=== PATIENT | male | born 1995 | race Caucasian/White ===

== ENCOUNTER 2018-02-26 21:39 | Inpatient (IN) | payer MEDICAID ==
[2018-02-26] MEDS ORDERED: KETOROLAC TROMETHAMINE INJ/PF 30 MG/1 ML SDV IV ONE (21:57)
--- NOTE | 2018-02-26 22:07 | ER Document Report ---
ED GI/ - General Mode of Arrival: Ambulatory Information source: Patient TRAVEL OUTSIDE OF THE [place] IN LAST 30 DAYS: No <LEVON NORWOOD - Last Filed: 02/26/18 21:59> <JORDY SAMANO - Last Filed: 02/27/18 00:15> - General Chief Complaint: Abdominal Pain Stated Complaint: ABDOMINAL PAIN Time Seen by Provider: 02/26/18 21:51 Notes: 22 year old male that presents to the emergency department today with complaints of an upper abdominal squeezing pain. Patient states he ate a beef and cheese slider about 1 hour prior to this pain. Patient notices increased pain when breathing in. (LEVON NORWOOD) - Related Data Allergies/Adverse Reactions: No Known Allergies Allergy (Verified 06/05/14 12:20) Past Medical History - General Information source: Patient - Social History Smoking Status: Never Smoker Cigarette use (# per day): No Frequency of alcohol use: None Drug Abuse: None Lives with: Family Family History: Reviewed & Not Pertinent - Immunizations Immunizations up to date: Yes Hx Diphtheria, Pertussis, Tetanus Vaccination: Yes <LEVON NORWOOD - Last Filed: 02/26/18 21:59> Review of Systems - Review of Systems Constitutional: No symptoms reported EENT: No symptoms reported Cardiovascular: No symptoms reported Respiratory: No symptoms reported Gastrointestinal: See HPI, Abdominal pain Genitourinary: No symptoms reported Male Genitourinary: No symptoms reported Musculoskeletal: No symptoms reported Skin: No symptoms reported Hematologic/Lymphatic: No symptoms reported Neurological/Psychological: No symptoms reported -: Yes All other systems reviewed and negative <LEVON NORWOOD - Last Filed: 02/26/18 21:59> Physical Exam - Vital signs Interpretation: Normal - General General appearance: Appears well, Alert - HEENT Head: Normocephalic, Atraumatic Eyes: Normal Pupils: PERRL - Respiratory Respiratory status: No respiratory distress Chest status: Nontender Breath sounds: Normal Chest palpation: Normal - Cardiovascular Rhythm: Regular Heart sounds: Normal auscultation Murmur: No - Abdominal Distension: No distension Bowel sounds: Normal Tenderness: Tender - RUQ/Epigastric ttp Organomegaly: No organomegaly - Back Back: Normal, Nontender - Extremities General upper extremity: Normal inspection, Nontender. No: Edema General lower extremity: Normal inspection, Nontender. No: Edema - Neurological Neuro grossly intact: Yes Cognition: Normal Orientation: AAOx4 [place] Coma Scale Eye Opening: Spontaneous [place] Coma Scale Verbal: Oriented [place] Coma Scale Motor: Obeys Commands [place] Coma Scale Total: 15 Speech: Normal - Psychological Associated symptoms: Normal affect, Normal mood - Skin Skin Temperature: Warm Skin Moisture: Dry Skin Color: Normal <LEVON NORWOOD - Last Filed: 02/26/18 21:59> - Vital signs Vitals: Resp Pulse Ox 11 L 100 02/26/18 21:56 02/26/18 21:56 Course <LEVON NORWOOD - Last Filed: 02/26/18 21:59> - Laboratory Result Diagrams: 02/26/18 22:05 02/26/18 22:05 - Diagnostic Test Radiology reviewed: Reports reviewed - Ultrasound shows gallstones - EKG Interpretation by Co EKG shows normal: Sinus rhythm, Crosby, Intervals, QRS Complexes, ST-T Waves Rate: Normal - 82 Rhythm: NSR - Consults Dr. Jimenez Time consulted: 23:30 Consulted provider: will see as inpatient <JORDY SAMANO - Last Filed: 02/27/18 00:15> - Re-evaluation Re-evalutation: 02/26/18 23:32 Gallbladder ultrasound shows gallstones. There is no sign of cholecystitis. Lipase is 39,820 with only slightly elevated AST and ALT and total bili. 02/26/18 23:42 The patient states his pain is better at this time, but he remains quite nauseous. He will be given a 10 mg dose of Reglan to see if that helps control his nausea. (JORDY SAMANO) - Vital Signs Vital signs: Temp Pulse Resp BP Pulse Ox 97.4 F 91 17 150/74 H 92 02/26/18 22:20 02/26/18 22:20 02/26/18 23:01 02/26/18 23:01 02/26/18 23:01 - Laboratory Laboratory results interpreted by me: 02/26/18 02/26/18 22:05 22:05 WBC 14.8 H RBC 6.17 H Hgb 17.3 H MCV 79 L Absolute Neutrophils 9.9 H Glucose 111 H Direct Bilirubin 0.5 H AST 101 H ALT 102 H Lipase 85237.2 H Discharge <LEVON NORWOOD - Last Filed: 02/26/18 21:59> - Discharge Admitting Provider: Surgicalist Unit Admitted: Surgical Floor <JORDY SAMANO - Last Filed: 02/27/18 00:15> - Discharge Clinical Impression: Acute gallstone pancreatitis Condition: Stable Disposition: ADMITTED INPATIENT Scribe Attestation: 02/26/18 22:32 I personally performed the services described in the documentation, reviewed and edited the documentation which was dictated to the scribe in my presence, and it accurately records my words and actions. (JORDY SAMANO) Scribe Documentation - Scribe Written by Pastoribe:: Hernesto Grier, 02/26/2018 [id number] acting as scribe for :: Bonnie <LEVON NORWOOD - Last Filed: 02/26/18 21:59>
[2018-02-26 22:15] LABS: ABSOLUTE BASOPHILS # (AUTO) 0.1 10^3/uL (0.0-0.2); ABSOLUTE EOSINOPHILS # (AUTO) 0.2 10^3/uL (0.0-0.6); ABSOLUTE LYMPHOCYTES (AUTO) 3.5 10^3/uL (0.5-4.7); ABSOLUTE MONOCYTES (AUTO) 1.1 10^3/uL (0.1-1.4); ABSOLUTE NEUT (AUTO) 9.9 10^3/uL (1.7-8.2); BASOPHILS % (AUTO) 0.4 % (0-2); EOSINOPHILS % (AUTO) 1.5 % (0-6); HEMATOCRIT 48.4 % (37.9-51.0); HEMOGLOBIN 17.3 g/dL (13.5-17.0); LYMPHOCYTES % (AUTO) 23.7 % (13-45); MEAN CORPUSCULAR HGB CONC 35.7 g/dL (32.0-36.0); MEAN CORPUSCULAR VOLUME 79 fl (80-97); MONOCYTES % (AUTO) 7.2 % (3-13); PLATELET COUNT 395 10^3/uL (150-450); RED BLOOD COUNT 6.17 10^6/uL (4.35-5.55); RED CELL DISTRIBUTION WIDTH 13.8 % (11.5-14.0); SEGMENTED NEUTROPHILS % (AUTO) 67.2 % (42-78); TOTAL CELLS COUNTED % (AUTO) 100 %; WHITE BLOOD COUNT 14.8 10^3/uL (4.0-10.5)
[2018-02-26 22:33] LABS: ALANINE AMINOTRANSFERASE 102 U/L (21-72); ALBUMIN 4.2 g/dL (3.5-5.0); ALKALINE PHOSPHATASE 83 U/L (38-126); ANION GAP 12 (5-19); ASPARTATE AMINO TRANSFERASE 101 U/L (17-59); BILIRUBIN,DIRECT 0.5 mg/dL (0.0-0.4); BILIRUBIN,TOTAL 1.3 mg/dL (0.2-1.3); BLOOD UREA NITROGEN 12 mg/dL (7-20); CALCIUM 9.7 mg/dL (8.4-10.2); CARBON DIOXIDE 26 mmol/L (22-30); CHLORIDE 104 mmol/L (98-107); GLUCOSE 111 mg/dL (75-110); POTASSIUM 4.3 mmol/L (3.6-5.0); SODIUM 141.5 mmol/L (137-145); TOTAL PROTEIN 7.4 g/dL (6.3-8.2)
[2018-02-26] MEDS ORDERED: MORPHINE SULFATE 10 MG/ML INJ IV ONE (22:40)
[2018-02-26] MEDS ORDERED: ONDANSETRON HCL INJ/PF 4 MG/2 ML SDV IV ONE (22:40)
[2018-02-26 23:21] LABS: LIPASE 39820.2 U/L (23-300)
--- NOTE | 2018-02-26 23:24 | RADIOLOGY REPORT (SQ) ---
US ABDOMEN LIMITED HISTORY: RUQ abd pain COMPARISON: None. TECHNIQUE: Grayscale and color Doppler imaging of the right upper quadrant was performed. FINDINGS: Study is limited due to motion artifact and body habitus. The liver measures 19.3 cm. Increased echogenicity of the hepatic parenchyma with decreased through transmission and poor visualization of the portal triads, suggesting hepatic steatosis. Shadowing gallstones are present. No pericholecystic fluid or gallbladder wall thickening. Common bile duct measures 2 mm. No intrahepatic biliary ductal dilatation. The pancreas is not visualized due to overlying bowel gas. Right kidney measures 11.4 cm in length, without hydronephrosis. Visualized portions of the IVC and aorta are patent. IMPRESSION: Limited study due to motion artifact and body habitus. Suggestion of gallstones. No evidence of cholecystitis.
[2018-02-26] MEDS ORDERED: AMPICILLIN SOD/SULBACTAM 3 GM VIAL IV SCH (23:30)
[2018-02-26] MEDS ORDERED: RINGERS SOLUTION,LACTATED 1,000 ML IV PRN (23:33)
[2018-02-26] MEDS ORDERED: METOCLOPRAMIDE HCL INJ/PF 10 MG/2 ML SDV IV ONE (23:41)
--- NOTE | 2018-02-27 00:21 | PDOC H&P ---
History of Present Illness Admission Date/PCP: 02/26/18 23:53 Patient complains of: Abdominal pain nausea History of Present Illness: TRELL HUTCHINSON is a 22 year old male Who presents to the emergency department via ground rescue complaining of acute onset postprandial abdominal pain squeezing within the chest, nausea and anorexia. He broke out in a sweat. He was seen in the emergency department where he is found to have right upper quadrant tenderness, leukocytosis, and a lipase level of 39,000. Gallbladder ultrasonography revealed cholelithiasis. Surgery was consulted and patient was advised admission for definitive management of gallstone pancreatitis. Past Medical History Past Medical History: Morbid obesity Medical History: None Past Surgical History Past Surgical History: Reports: None Social History Lives with: Family Smoking Status: Never Smoker Hx Recreational Drug Use: No Hx Prescription Drug Abuse: No Family History Family History: Reviewed & Not Pertinent Parental Family History Reviewed: Yes Children Family History Reviewed: Yes Sibling(s) Family History Reviewed.: Yes Medication/Allergy Home Medications: Hydrocodone/Acetaminophen [Vicodin 5-300 mg Tablet] 1 - 2 tab PO Q6HP PRN #15 tab 06/05/14 Cephalexin Monohydrate [Keflex 500 mg Capsule] 500 mg PO BID #20 capsule Allergies/Adverse Reactions: No Known Allergies Allergy (Verified 06/05/14 12:20) Review of Systems Constitutional: PRESENT: as per HPI Eyes: ABSENT: visual disturbances Ears: ABSENT: hearing changes Cardiovascular: ABSENT: chest pain, dyspnea on exertion, edema, orthropnea, palpitations Gastrointestinal: PRESENT: as per HPI Genitourinary: ABSENT: dysuria, hematuria Musculoskeletal: ABSENT: joint swelling Neurological: ABSENT: abnormal gait, abnormal speech, confusion, dizziness, focal weakness, syncope Psychiatric: ABSENT: anxiety, depression, homidical ideation, suicidal ideation Endocrine: ABSENT: cold intolerance, heat intolerance, polydipsia, polyuria Physical Exam Vital Signs: Temp Pulse Resp BP Pulse Ox 97.4 F 91 17 150/74 H 92 02/26/18 22:20 02/26/18 22:20 02/26/18 23:01 02/26/18 23:01 02/26/18 23:01 General appearance: PRESENT: mild distress, morbidly obese Eye exam: PRESENT: EOMI Mouth exam: PRESENT: dry mucosa Neck exam: PRESENT: full ROM Respiratory exam: PRESENT: clear to auscultation lashawn Cardiovascular exam: PRESENT: RRR Pulses: PRESENT: normal carotid pulses, normal radial pulses, normal femoral pulses GI/Abdominal exam: PRESENT: diminished bowel sounds, other - No focal tenderness at the time of this exam; patient just received narcotic pain medication Rectal exam: PRESENT: deferred Extremities exam: PRESENT: full ROM Musculoskeletal exam: PRESENT: full ROM Neurological exam: PRESENT: alert, oriented to person, oriented to place, oriented to time, oriented to situation Psychiatric exam: PRESENT: anxious, appropriate affect Results Impressions: Abdomen Ultrasound 02/26/18 21:58 IMPRESSION: Limited study due to motion artifact and body habitus. Suggestion of gallstones. No evidence of cholecystitis. Assessment & Plan - Diagnosis (1) Acute gallstone pancreatitis Is this a current diagnosis for this admission?: Yes Plan: Impression: Acute onset abdominal pain nausea anorexia right upper quadrant tenderness leukocytosis and hyperlipemia C Donna with gallbladder ultrasound confirming gallstones clinical picture is consistent with gallstone pancreatitis , uncomplicated Recommendations: 1. Admit, IV fluids, n.p.o., intravenous antibiotics. Pain medication as needed 2. Close observation, monitor I's and O's, lab values. If patient clinically improves, anticipate interval laparoscopic cholecystectomy with intraoperative cholangiography. Conversely if patient deteriorates, transfer to ICU, additional imaging such as CT scan may be indicated. 3. This was discussed with patient and his father; it is unclear how much they completely understand about the diagnosis and treatment plan. (2) Morbid obesity with BMI of 45.0-49.9, adult Is this a current diagnosis for this admission?: Yes - Time Time Spent: 50 to 70 Minutes Critical Time spent with patient: Less than 15 minutes Medications reviewed and adjusted accordingly: Yes Anticipated discharge: Home - Inpatient Certification Based on my medical assessment, after consideration of the patient's comorbidities, presenting symptoms, or acuity I expect that the services needed warrant INPATIENT care.: Yes I certify that my determination is in accordance with my understanding of Medicare's requirements for reasonable and necessary INPATIENT services [42 CFR 412.3e].: Yes Medical Necessity: Need For IV Fluids, Need for Pain Control, Need for IV Antibiotics, Need for Surgery
[2018-02-27] MEDS ORDERED: AMPICILLIN SOD/SULBACTAM 3 GM VIAL IV PRN (00:40)
[2018-02-27] MEDS ORDERED: AMPICILLIN SODIUM/SULBACTAM NA 3 GM in NORMAL SALINE 100 ML IV ONE (00:45)
[2018-02-27] MEDS: MORPHINE SULFATE 10 MG/ML INJ IV PRN ×7 (01:51→21:33)
[2018-02-27] MEDS: RINGERS SOLUTION,LACTATED 1,000 ML IV PRN ×5 (02:42→21:32)
[2018-02-27] MEDS: KETOROLAC TROMETHAMINE INJ/PF 30 MG/1 ML SDV IV PRN ×3 (04:10→17:22)
[2018-02-27 05:22] LABS: APPEARANCE,URINE CLEAR; BILIRUBIN,URINE NEGATIVE (NEGATIVE); COLOR,URINE YELLOW; GLUCOSE, URINE 50 mg/dL (NEGATIVE); KETONES,URINE TRACE mg/dL (NEGATIVE); LEUKOCYTE ESTERASE,URINE NEGATIVE (NEGATIVE); NITRITE,URINE NEGATIVE (NEGATIVE); PROTEIN,URINE 30 mg/dL (NEGATIVE); URINE SPECIFIC GRAVITY 1.012
[2018-02-27] MEDS: ONDANSETRON HCL INJ/PF 4 MG/2 ML SDV IV PRN ×2 (08:24→13:58)
--- NOTE | 2018-02-27 08:51 | EKG REPORT ---
SEVERITY:- DEFECTIVE ECG - SINUS RHYTHM BASELINE ARTIFACT.REPEAT EKG. : Confirmed by: Carolina Pink MD 27-Feb-2018 08:51:25
[2018-02-27] MEDS: AMPICILLIN SODIUM/SULBACTAM NA 3 GM in NORMAL SALINE 100 ML IV SCH ×2 (09:26→17:21)
[2018-02-27 10:35] LABS: HEMATOCRIT 52.9 % (37.9-51.0); HEMOGLOBIN 18.5 g/dL (13.5-17.0); MEAN CORPUSCULAR HEMOGLOBIN 27.8 pg (27.0-33.4); MEAN CORPUSCULAR VOLUME 79 fl (80-97); PLATELET COUNT 390 10^3/uL (150-450); RED BLOOD COUNT 6.67 10^6/uL (4.35-5.55); RED CELL DISTRIBUTION WIDTH 14.2 % (11.5-14.0); WHITE BLOOD COUNT 25.1 10^3/uL (4.0-10.5)
[2018-02-27 11:09] LABS: ABSOLUTE LYMPHOCYTES# (MANUAL) 0.8 10^3/uL (0.5-4.7); ABSOLUTE MONOCYTES # (MANUAL) 0.5 10^3/uL (0.1-1.4); ABSOLUTE NEUTROPHILS# (MANUAL) 23.8 10^3/uL (1.7-8.2); BASOPHILS % (MANUAL) 0 % (0-2); EOSINOPHILS % (MANUAL) 0 % (0-6); LYMPHOCYTES % (MANUAL) 3 % (13-45); MONOCYTES % (MANUAL) 2 % (3-13); SEGMENTED NEUTROPHILS % (MAN) 95 % (42-78); TOTAL CELLS COUNTED 100
[2018-02-27 11:10] LABS: ANISOCYTOSIS SLIGHT; PLATELET COMMENT ADEQUATE; PLATELET LARGE PRESENT; TOXIC GRANULATION 1+
--- NOTE | 2018-02-27 14:22 | PDOC PROGRESS REPORT ---
Subjective Progress Note for:: 02/27/18 Subjective:: Patient states he feels a little better. Is receiving morphine, Zofran around- the-clock. He is voiding. No vomiting. Reason For Visit: GALLSTONE PANCREATITIS Physical Exam Vital Signs: Temp Pulse Resp BP Pulse Ox 98.5 F 78 18 148/97 H 93 02/27/18 07:35 02/27/18 07:35 02/27/18 07:35 02/27/18 07:35 02/27/18 07:35 Intake & Output 02/26/18 02/27/18 02/28/18 06:59 06:59 06:59 Intake Total 2100 1100 Balance 2100 1100 Weight 164.9 kg General appearance: PRESENT: no acute distress, other - Patient appears comfortable no active distress GI/Abdominal exam: PRESENT: other - The abdomen appears benign no peritoneal signs no rigidity. He is complaining of some back pain due to being in bed Results Laboratory Results: 02/27/18 10:13 02/27/18 02/27/18 02/27/18 04:00 10:13 10:13 WBC 25.1 H RBC 6.67 H Hgb 18.5 H Hct 52.9 H MCV 79 L MCH 27.8 MCHC 35.0 RDW 14.2 H Plt Count 390 Seg Neutrophils % Not Reportable Lymphocytes % Not Reportable Monocytes % Not Reportable Eosinophils % Not Reportable Basophils % Not Reportable Absolute Neutrophils Not Reportable Absolute Lymphocytes Not Reportable Absolute Monocytes Not Reportable Absolute Eosinophils Not Reportable Absolute Basophils Not Reportable Lipase 5301.8 H Urine Color YELLOW Urine Appearance CLEAR Urine pH 6.0 Ur Specific [place] 1.012 Urine Protein 30 H Urine Glucose (UA) 50 H Urine Ketones TRACE H Urine Blood SMALL H Urine Nitrite NEGATIVE Ur Leukocyte Esterase NEGATIVE Urine WBC (Auto) 3 Urine RBC (Auto) 2 Impressions: Abdomen Ultrasound 02/26/18 21:58 IMPRESSION: Limited study due to motion artifact and body habitus. Suggestion of gallstones. No evidence of cholecystitis. Assessment & Plan - Diagnosis (1) Acute gallstone pancreatitis Is this a current diagnosis for this admission?: Yes Plan: Hospital day 1 following IV fluids, intravenous antibiotics, n.p.o., antiemetics and analgesics. Patient's laboratory profile demonstrates improvement in lipase, elevation of white blood cell count. Patient clinically improved. Recommendations: 1. Continue current therapy as the resuscitation for the pancreatitis continues ; patient appears to be euvolemic. 2. We will check labs in the morning. He may be a candidate for laparoscopic cholecystectomy. This was discussed with patient and his father. (2) Morbid obesity with BMI of 45.0-49.9, adult Is this a current diagnosis for this admission?: Yes
[2018-02-28] MEDS: MORPHINE SULFATE 10 MG/ML INJ IV PRN ×2 (00:39→03:42)
[2018-02-28] MEDS: AMPICILLIN SODIUM/SULBACTAM NA 3 GM in NORMAL SALINE 100 ML IV SCH (02:16)
[2018-02-28] MEDS: RINGERS SOLUTION,LACTATED 1,000 ML IV PRN (03:45)
[2018-02-28 05:00] LABS: HEMATOCRIT 54.1 % (37.9-51.0); HEMOGLOBIN 19.1 g/dL (13.5-17.0); MEAN CORPUSCULAR HEMOGLOBIN 28.5 pg (27.0-33.4); MEAN CORPUSCULAR HGB CONC 35.3 g/dL (32.0-36.0); MEAN CORPUSCULAR VOLUME 81 fl (80-97); PLATELET COUNT 358 10^3/uL (150-450); RED BLOOD COUNT 6.71 10^6/uL (4.35-5.55); RED CELL DISTRIBUTION WIDTH 14.6 % (11.5-14.0)
[2018-02-28 05:36] LABS: ABSOLUTE LYMPHOCYTES# (MANUAL) 0.9 10^3/uL (0.5-4.7); ABSOLUTE MONOCYTES # (MANUAL) 2.2 10^3/uL (0.1-1.4); ABSOLUTE NEUTROPHILS# (MANUAL) 28.2 10^3/uL (1.7-8.2); BASOPHILS % (MANUAL) 0 % (0-2); EOSINOPHILS % (MANUAL) 0 % (0-6); LYMPHOCYTES % (MANUAL) 3 % (13-45); MONOCYTES % (MANUAL) 7 % (3-13); SEGMENTED NEUTROPHILS % (MAN) 90 % (42-78); TOTAL CELLS COUNTED 100
[2018-02-28 05:38] LABS: PLATELET COMMENT ADEQUATE; RBC MORPHOLOGY COMMENT NORMO-CYTIC/CHROMIC
[2018-02-28 05:39] LABS: WHITE BLOOD COUNT 31.3 10^3/uL (4.0-10.5)
[2018-02-28 07:33] LABS: ALANINE AMINOTRANSFERASE 336 U/L (21-72); ALBUMIN 3.6 g/dL (3.5-5.0); ALKALINE PHOSPHATASE 82 U/L (38-126); ANION GAP 17 (5-19); ASPARTATE AMINO TRANSFERASE 271 U/L (17-59); BILIRUBIN,DIRECT 7.4 mg/dL (0.0-0.4); BILIRUBIN,TOTAL 10.1 mg/dL (0.2-1.3); BLOOD UREA NITROGEN 25 mg/dL (7-20); CALCIUM 7.5 mg/dL (8.4-10.2); CARBON DIOXIDE 16 mmol/L (22-30); CHLORIDE 110 mmol/L (98-107); GLUCOSE 168 mg/dL (75-110); SODIUM 143.3 mmol/L (137-145); TOTAL PROTEIN 6.7 g/dL (6.3-8.2)
[2018-02-28] MEDS ORDERED: NORMAL SALINE 1000 ML 1,000 ML IV PRN ×2 (08:03→08:45)
[2018-02-28] MEDS ORDERED: RINGERS SOLUTION,LACTATED 500 ML IV ONE (08:05)
--- NOTE | 2018-02-28 08:24 | RADIOLOGY REPORT (SQ) ---
EXAM DESCRIPTION: CHEST SINGLE VIEW COMPLETED DATE/TIME: 02/28/2018 8:08 am REASON FOR STUDY: tachy,will need VQ scan if normal CXR COMPARISON: 06/05/2014 EXAM PARAMETERS: NUMBER OF VIEWS: One view. TECHNIQUE: Single frontal radiographic view of the chest acquired. RADIATION DOSE: NA LIMITATIONS: None. FINDINGS: LUNGS AND PLEURA: No opacities, masses or pneumothorax. No pleural effusion. MEDIASTINUM AND HILAR STRUCTURES: No masses. Contour normal. HEART AND VASCULAR STRUCTURES: Heart normal in size. Normal vasculature. BONES: No acute findings. HARDWARE: None in the chest. OTHER: No other significant finding. IMPRESSION: NO ACUTE RADIOGRAPHIC FINDING IN THE CHEST. TECHNICAL DOCUMENTATION: JOB ID: [id number] [employer]- All Rights Reserved Reading location - IP/workstation name: [email or web address]
--- NOTE | 2018-02-28 08:28 | PDOC PROGRESS REPORT ---
Subjective Progress Note for:: 02/28/18 Subjective:: Patient with generalized malaise and weakness. Patient is easily arousable and talks coherently but his mother was concerned that he has been talking nonsensical at times. Patient denies any abdominal pain at this time. He has generalized extreme fatigue and some shortness of breath. Reason For Visit: GALLSTONE PANCREATITIS Physical Exam Vital Signs: Temp Pulse Resp BP Pulse Ox 99.3 F 136 H 20 124/78 94 02/27/18 23:57 02/27/18 23:57 02/27/18 15:27 02/27/18 23:57 02/27/18 23:57 Intake & Output 02/27/18 02/28/18 03/01/18 06:59 06:59 06:59 Intake Total 2099 414 Output Total 2019 Balance 2099 212 Weight 164.9 kg General appearance: PRESENT: cooperative - Sleepy but arousable and provides a coherent history. Appears ill. Respiratory exam: PRESENT: clear to auscultation lashawn, tachypnea Cardiovascular exam: PRESENT: tachycardia GI/Abdominal exam: PRESENT: other - Soft, difficult to tell whether he is distended but the abdomen is soft. There is diffuse abdominal tenderness that is mild, more severe in the upper abdomen with no peritoneal signs. Extremities exam: PRESENT: other - No swelling and no tenderness in the lower extremities Skin exam: PRESENT: warm Results Laboratory Results: 02/28/18 04:28 02/28/18 04:28 02/27/18 02/27/18 02/28/18 10:13 10:13 04:28 WBC 25.1 H 31.3 H* RBC 6.67 H 6.71 H Hgb 18.5 H 19.1 H Hct 52.9 H 54.1 H MCV 79 L 81 MCH 27.8 28.5 MCHC 35.0 35.3 RDW 14.2 H 14.6 H Plt Count 390 358 Seg Neutrophils % Not Reportable Not Reportable Lymphocytes % Not Reportable Not Reportable Monocytes % Not Reportable Not Reportable Eosinophils % Not Reportable Not Reportable Basophils % Not Reportable Not Reportable Absolute Neutrophils Not Reportable Not Reportable Absolute Lymphocytes Not Reportable Not Reportable Absolute Monocytes Not Reportable Not Reportable Absolute Eosinophils Not Reportable Not Reportable Absolute Basophils Not Reportable Not Reportable Sodium Potassium Chloride Carbon Dioxide Anion Gap BUN Creatinine Est GFR ( Amer) Est GFR (Non-Af Amer) Glucose Calcium Total Bilirubin AST ALT Alkaline Phosphatase Total Protein Albumin Lipase 5301.8 H 02/28/18 02/28/18 04:28 04:28 WBC RBC Hgb Hct MCV MCH MCHC RDW Plt Count Seg Neutrophils % Lymphocytes % Monocytes % Eosinophils % Basophils % Absolute Neutrophils Absolute Lymphocytes Absolute Monocytes Absolute Eosinophils Absolute Basophils Sodium 143.3 Potassium 5.0 Chloride 110 H Carbon Dioxide 16 L Anion Gap 17 BUN 25 H Creatinine 3.02 H Est GFR ( Amer) 32 L Est GFR (Non-Af Amer) 27 L Glucose 168 H Calcium 7.5 L Total Bilirubin 10.1 H AST 271 H ALT 336 H Alkaline Phosphatase 82 Total Protein 6.7 Albumin 3.6 Lipase 53114.1 H Impressions: Abdomen Ultrasound 02/26/18 21:58 IMPRESSION: Limited study due to motion artifact and body habitus. Suggestion of gallstones. No evidence of cholecystitis. Assessment & Plan - Diagnosis (1) Cholangitis concurrent with and due to calculus of gallbladder Is this a current diagnosis for this admission?: Yes Plan: Most likely cholangitis with associated pancreatitis. His marked elevation of his total bilirubin along with tachycardia, leukocytosis support this diagnosis. I do not think he has ischemic bowel based on the fact that he has minimal abdominal pain. His abdomen is soft with mild tenderness and no peritoneal signs. If he had shock liver, would expect more marked elevations of his transaminases. We will place a Dutton catheter, adjust IV fluids, broaden out antibiotic coverage. Obtain a abdominal pelvic CT scan (no IV contrast since he has emerging renal failure) (no oral contrast to avoid aspiration since he has mental status changes) and will attempt to get gastroenterology consultation for possible ERCP versus percutaneous transhepatic drainage. Agree with hospitalist plans for VQ scan and troponins to rule out pulmonary embolism or myocardial infarction but cholangitis would explained his current clinical picture. Will ask nephrology for help in managing his renal failure. But hopefully everything will turn around with broadening out his antibiotic coverage and possibly decompressing his biliary tree. (2) Sepsis Is this a current diagnosis for this admission?: Yes Plan: See above. Check blood cultures.
--- NOTE | 2018-02-28 08:43 | PDOC CONSULTATION ---
Consultation Consult Date: 02/28/18 Attending physician:: COLT MEDRANO Consult reason:: tachycardia History of Present Illness Admission Date/PCP: 02/27/18 00:11 History of Present Illness: TRELL HUTCHINSON is a 22 year old male with morbid obesity and no known other PMH , not taking maintenance medications at home who initially presented with RUQ pain and was found to have elevated lipase and gallstones. He was subsequently admitted for gallstone pancreatitis. Patient was kept NPO and was also started on IV fluids and pain management. This morning, hospitalist service was consulted due to sinus tachycardia in the 160s. Upon encounter, patient appears anxious and diaphoretic. He complains of shortness of breath which he says he has been having in the past 2 nights. He does say that he is anxious and overwhelmed with the medical issues he is dealing with at the moment. He is saturating at 97% on room air. He denies chest pain. Patient is coherent and oriented x 3 but mother did say that he has alternating episodes of confusion this morning saying incomprehensible phrases out of context from time to time like "i want to be a hero". Patient says his abdominal pain has improved. No nausea or vomiting. He says he feels very dry and thirsty. Past Surgical History Past Surgical History: Reports: None Social History Lives with: Family Smoking Status: Never Smoker Hx Recreational Drug Use: No Drugs: None Hx Prescription Drug Abuse: No Family History Family History: Reviewed & Not Pertinent Parental Family History Reviewed: Yes - no premature CAD Children Family History Reviewed: No Sibling(s) Family History Reviewed.: No Medication/Allergy Home Medications: No Home Medications 02/27/18 Allergies/Adverse Reactions: No Known Allergies Allergy (Verified 06/05/14 12:20) Review of Systems All systems: reviewed and no additional remarkable complaints except as stated - as mentioned in HPI Physical Exam Vital Signs: Temp Pulse Resp BP Pulse Ox 99.3 F 136 H 20 124/78 94 02/27/18 23:57 02/27/18 23:57 02/27/18 15:27 02/27/18 23:57 02/27/18 23:57 Intake & Output 02/27/18 02/28/18 03/01/18 06:59 06:59 06:59 Intake Total 2099 4145 Output Total 2019 Balance 2100 2126 Weight 363 lb 8.676 oz General appearance: PRESENT: mild distress, morbidly obese Head exam: PRESENT: atraumatic, normocephalic Eye exam: PRESENT: EOMI, PERRLA Mouth exam: PRESENT: moist, tongue midline Neck exam: ABSENT: carotid bruit, JVD, lymphadenopathy, thyromegaly Respiratory exam: PRESENT: clear to auscultation lashawn. ABSENT: rales, rhonchi, wheezes Cardiovascular exam: PRESENT: RRR, tachycardia. ABSENT: diastolic murmur, rubs , systolic murmur Pulses: PRESENT: normal dorsalis pedis pul GI/Abdominal exam: PRESENT: normal bowel sounds, soft. ABSENT: distended, guarding, mass, organolmegaly, rebound, tenderness Rectal exam: PRESENT: deferred Neurological exam: PRESENT: alert, awake, oriented to person, oriented to place , oriented to time Results Laboratory Results: 02/28/18 04:28 02/28/18 04:28 02/27/18 02/27/18 02/28/18 10:13 10:13 04:28 WBC 25.1 H 31.3 H* RBC 6.67 H 6.71 H Hgb 18.5 H 19.1 H Hct 52.9 H 54.1 H MCV 79 L 81 MCH 27.8 28.5 MCHC 35.0 35.3 RDW 14.2 H 14.6 H Plt Count 390 358 Seg Neutrophils % Not Reportable Not Reportable Lymphocytes % Not Reportable Not Reportable Monocytes % Not Reportable Not Reportable Eosinophils % Not Reportable Not Reportable Basophils % Not Reportable Not Reportable Absolute Neutrophils Not Reportable Not Reportable Absolute Lymphocytes Not Reportable Not Reportable Absolute Monocytes Not Reportable Not Reportable Absolute Eosinophils Not Reportable Not Reportable Absolute Basophils Not Reportable Not Reportable Sodium Potassium Chloride Carbon Dioxide Anion Gap BUN Creatinine Est GFR ( Amer) Est GFR (Non-Af Amer) Glucose Calcium Total Bilirubin AST ALT Alkaline Phosphatase Total Protein Albumin Lipase 5301.8 H 02/28/18 02/28/18 04:28 04:28 WBC RBC Hgb Hct MCV MCH MCHC RDW Plt Count Seg Neutrophils % Lymphocytes % Monocytes % Eosinophils % Basophils % Absolute Neutrophils Absolute Lymphocytes Absolute Monocytes Absolute Eosinophils Absolute Basophils Sodium 143.3 Potassium 5.0 Chloride 110 H Carbon Dioxide 16 L Anion Gap 17 BUN 25 H Creatinine 3.02 H Est GFR ( Amer) 32 L Est GFR (Non-Af Amer) 27 L Glucose 168 H Calcium 7.5 L Total Bilirubin 10.1 H AST 271 H ALT 336 H Alkaline Phosphatase 82 Total Protein 6.7 Albumin 3.6 Lipase 23994.1 H Impressions: Abdomen Ultrasound 02/26/18 21:58 IMPRESSION: Limited study due to motion artifact and body habitus. Suggestion of gallstones. No evidence of cholecystitis. Assessment & Plan - Diagnosis (1) Tachycardia Is this a current diagnosis for this admission?: Yes Plan: Patient's heart rate has been running in the 140-160s in sinus rhythm. Reviewed EKGs, one initial EKG shows a possible S1Q3T3 pattern. He is saturating well at 97% on room air. He has worsening renal functions and will pursue a V/Q scan instead to assess for PE. Will also check a troponin. Patient also appears very dehydrated consistent with increasing H&H at 17.3 -> 18.5 -> and today 19.1. Recommend more aggressive fluid resuscitation especially with his pancreatitis. Will give a fluid bolus and see if his heart rate improves but will also evaluate for PE as well. His increasing WBC, significant increase of the bilirubin and liver enzymes along with episodic confusion is also concerning acute beginning cholangitis. Recommend expanding antibiotic coverage. Surgery has order a CT scan of the abdomen and pelvis. (2) Acute renal failure Is this a current diagnosis for this admission?: Yes Plan: Acute rise in creatinine is possible from sepsis vs pre renal from dehydration. Will check a FeNa. Continue IV fluids and antibiotics. (3) Sepsis Is this a current diagnosis for this admission?: Yes Plan: Secondary to acute cholangitis. Antibiotics as recommended. Will check lactic acid. - Time Time Spent: 50 to 70 Minutes
--- NOTE | 2018-02-28 09:18 | RADIOLOGY REPORT (SQ) ---
EXAM DESCRIPTION: NM LUNG VENT/PERF SCAN COMPLETED DATE/TIME: 02/28/2018 9:08 am REASON FOR STUDY: SOB, TACHYCARDIC COMPARISON: Chest x-ray dated 02/28/2018. RADIONUCLIDE AND DOSE: 5.43 millicuries TC-99m MAA Intravenous 31.3 millicuries TC-99m DTPA Inhaled aerosol TECHNIQUE: Anterior and posterior views of the lungs acquired post ventilation of DTPA aerosol. Ant erior and posterior matching views of the lungs acquired following injection of MAA. LIMITATIONS: The study is limited to anterior and posterior images only due to patient tolerance. FINDINGS: VENTILATION: Symmetric and homogeneous distribution of DTPA aerosol during ventilatory pha se. No significant areas of photopenia. PERFUSION: Perfusion images with normal homogenous activity and no wedge-shaped or segmental defects. No ventilation-perfusion mismatches. OTHER: No other significant finding. IMPRESSION: LIMITED STUDY. NO PERFUSION DEFECTS. LOW PROBABILITY OF PULMONARY EMBOLISM. TECHNICAL DOCUMENTATION: JOB ID: [id number] [employer]- All Rights Reserved Reading location - IP/workstation name: [email or web address]
[2018-02-28] MEDS ORDERED: ERTAPENEM SODIUM 1 GM in NORMAL SALINE 50 ML IV SCH (10:00)
--- NOTE | 2018-02-28 10:08 | RADIOLOGY REPORT (SQ) ---
EXAM DESCRIPTION: CT ABD/PELVIS NO ORAL OR IV COMPLETED DATE/TIME: 02/28/2018 9:14 am REASON FOR STUDY: PANCREATITIS COMPARISON: None. TECHNIQUE: CT scan of the abdomen and pelvis performed without intravenous or oral contrast. Images reviewed with lung, soft tissue, and bone windows. Reconstructed coronal and sagittal MPR images revi ewed. All images stored on PACS. All CT scanners at this facility use dose modulation, iterative reconstruction, and/or weight based d osing when appropriate to reduce radiation dose to as low as reasonably achievable (ALARA). [facility]: Dose Right [facility]: CareDose [facility]: Dose Right [facility]: Teradose 4D [facility]: Smart Cordia RADIATION DOSE: CT Rad equipment meets quality standard of care and radiation dose reduction techniq ues were employed. CTDIvol: 30.8 mGy. DLP: 2047 mGy-cm. LIMITATIONS: None. FINDINGS: LOWER CHEST: Small bilateral pleural effusions, slightly larger on the left. Prior granu lomatous disease. NON-CONTRASTED LIVER, SPLEEN, ADRENALS: Mild free fluid in the perihepatic and perisplenic spaces. Evaluation limited by lack of IV contrast. No identified significant masses. PANCREAS: The pancreas is diffusely enlarged. There is haziness and linear soft tissue stranding in the surrounding peripancreatic fat which extends into the bilateral perinephric spaces suggesting in flammatory and or edematous changes. Considerations for these findings include acute pancreatitis. GALLBLADDER: Very small gallstones are suggested. No diffuse gallbladder wall thickening by CT exam ination. RIGHT KIDNEY AND URETER: No suspicious masses. Assessment limited by lack of IV contrast. No signif icant calcifications. No hydronephrosis or hydroureter. LEFT KIDNEY AND URETER: No suspicious masses. Assessment limited by lack of IV contrast. No signifi cant calcifications. No hydronephrosis or hydroureter. AORTA AND RETROPERITONEUM: No aneurysm. No retroperitoneal masses or adenopathy. BOWEL AND PERITONEAL CAVITY: No evidence of marked dilatation of the bowel. Mild amount of free flui d in the colonic gutters bilaterally. Mild to moderate inflammatory changes involving the abdominal and mesenteric fat which extends into and involves the fat within the pelvic cavity, suggesting infla mmatory and or edematous changes. APPENDIX: Normal. PELVIS, BLADDER, AND ABDOMINAL WALL: Mild free fluid in the in the pelvis. Dutton catheter within th e urinary bladder. BONES: No significant findings. OTHER: No other significant finding. IMPRESSION: 1. The constellation of findings as noted above including diffuse enlargement of the pa ncreas and quff-io-bdkohczh inflammatory or edematous changes in the abdomen and pelvic cavities, sug gest acute pancreatitis. 2. Very small gallstones are suggested. 3. Small bilateral pleural effusions, larger on the left. COMMENT: 1. The results of this examination were discussed with the provider on 02/28/2018 at 09:58 hours. Quality ID # [id number]: Final reports with documentation of one or more dose reduction techniques (e.g., Au tomated exposure control, adjustment of the mA and/or kV according to patient size, use of iterative reconstruction technique) TECHNICAL DOCUMENTATION: JOB ID: [id number] [employer]- All Rights Reserved Reading location - IP/workstation name: [email or web address]
[2018-02-28] MEDS ORDERED: 1/2 NORMAL SALINE 1,000 ML IV PRN (10:42)
--- NOTE | 2018-02-28 12:13 | PDOC PROGRESS REPORT ---
Subjective Reason For Visit: GALLSTONE PANCREATITIS Physical Exam Vital Signs: Temp Pulse Resp BP Pulse Ox 99.7 F 157 H 24 H 120/84 97 02/28/18 08:00 02/28/18 08:00 02/28/18 08:00 02/28/18 08:00 02/28/18 08:00 Intake & Output 02/27/18 02/28/18 03/01/18 06:59 06:59 06:59 Intake Total 2100 4146 Output Total 2019 Balance 2099 2126 Weight 164.9 kg Results Laboratory Results: 02/28/18 04:28 02/28/18 11:10 02/28/18 02/28/18 02/28/18 04:28 04:28 04:28 WBC 31.3 H* RBC 6.71 H Hgb 19.1 H Hct 54.1 H MCV 81 MCH 28.5 MCHC 35.3 RDW 14.6 H Plt Count 358 Seg Neutrophils % Not Reportable Lymphocytes % Not Reportable Monocytes % Not Reportable Eosinophils % Not Reportable Basophils % Not Reportable Absolute Neutrophils Not Reportable Absolute Lymphocytes Not Reportable Absolute Monocytes Not Reportable Absolute Eosinophils Not Reportable Absolute Basophils Not Reportable Sodium 143.3 Potassium 5.0 Chloride 110 H Carbon Dioxide 16 L Anion Gap 17 BUN 25 H Creatinine 3.02 H Est GFR ( Amer) 32 L Est GFR (Non-Af Amer) 27 L Glucose 168 H Lactic Acid Calcium 7.5 L Total Bilirubin 10.1 H AST 271 H ALT 336 H Alkaline Phosphatase 82 Total Protein 6.7 Albumin 3.6 Lipase 73236.1 H 02/28/18 02/28/18 11:10 11:10 WBC RBC Hgb Hct MCV MCH MCHC RDW Plt Count Seg Neutrophils % Lymphocytes % Monocytes % Eosinophils % Basophils % Absolute Neutrophils Absolute Lymphocytes Absolute Monocytes Absolute Eosinophils Absolute Basophils Sodium Cancelled Potassium Cancelled Chloride Cancelled Carbon Dioxide Cancelled Anion Gap Cancelled BUN Cancelled Creatinine Cancelled Est GFR ( Amer) Cancelled Est GFR (Non-Af Amer) Cancelled Glucose Cancelled Lactic Acid Cancelled Calcium Cancelled Total Bilirubin Cancelled AST Cancelled ALT Cancelled Alkaline Phosphatase Cancelled Total Protein Cancelled Albumin Cancelled Lipase Impressions: Abdomen Ultrasound 02/26/18 21:58 IMPRESSION: Limited study due to motion artifact and body habitus. Suggestion of gallstones. No evidence of cholecystitis. Abdomen/Pelvis CT 02/28/18 00:00 IMPRESSION: 1. The constellation of findings as noted above including diffuse enlargement of the pancreas and axwb-nu-mnbcoexe inflammatory or edematous changes in the abdomen and pelvic cavities, suggest acute pancreatitis. 2. Very small gallstones are suggested. 3. Small bilateral pleural effusions, larger on the left. Lung Scan-VQ NM 02/28/18 00:00 IMPRESSION: LIMITED STUDY. NO PERFUSION DEFECTS. LOW PROBABILITY OF PULMONARY EMBOLISM. Chest X-Ray 02/28/18 07:43 IMPRESSION: NO ACUTE RADIOGRAPHIC FINDING IN THE CHEST. Assessment & Plan - Diagnosis (1) Acute gallstone pancreatitis Is this a current diagnosis for this admission?: Yes Plan: CT scan reviewed. Patient with renal failure, sepsis, possible cholangitis. Will transfer the patient to the intensive care unit. I have discussed the case with [facility]. The program mgr at [facility] did not feel that he met ICU criteria there however the hospitalist there has agreed to accept him in transfer. Await bed opening. Supportive care here in ICU.
[2018-02-28] MEDS ORDERED: NORMAL SALINE 1000 ML 1,000 ML IV ONE (12:30)
[2018-02-28] MEDS ORDERED: HALOPERIDOL LACTATE INJ 5 MG/1 ML VIAL ONE (12:33)
[2018-02-28] MEDS ORDERED: ONDANSETRON HCL INJ/PF 4 MG/2 ML SDV IV PRN (13:00)
--- NOTE | 2018-02-28 13:22 | Progress Note ---
Provider Note Provider Note: Surgery/primary has made arrangements for transferring patient to [facility]. Patient is currently on waiting list for IMCU bed. Called to update [facility] and discussed with counting machine operator. I strongly recommend ICU placement as acute cholangitis patient can quickly decompensate. Rediscussed case with the counting machine operator, Dr. Simmons who agreed to accept patient for ICU placement.
--- NOTE | 2018-02-28 13:35 | EKG REPORT ---
SEVERITY:- ABNORMAL ECG - SINUS TACHYCARDIA LEFT POSTERIOR FASCICULAR BLOCK : Confirmed by: Servando Phan MD 28-Feb-2018 13:34:37
[2018-02-28 13:38] LABS: PATH REVIEW PATHOLOGIST REVIEWED
[2018-02-28 13:50] LABS: ARTERIAL BLOOD BASE EXCESS -9.1 mmol/L; ARTERIAL BLOOD H2CO3 0.61 mmol/L (1.05-1.35); ARTERIAL BLOOD HCO3 12.3 mmol/L (20-24); ARTERIAL BLOOD O2 SATURATION 94.6 % (94-98); ARTERIAL BLOOD PO2 70.2 mmHg (80-100); ARTERIAL BLOOD TOTAL CO2 12.9 mmol/L (23-27)
[2018-02-28 13:51] LABS: ARTERIAL BLOOD FIO2 2L
[2018-02-28 13:52] LABS: ARTERIAL BLOOD PCO2 20.1 mmHg (35-45)
[2018-02-28] MEDS ORDERED: PROPOFOL 1,000 MG/100 ML INFUS..BTL IV ONE (14:01)
[2018-02-28] MEDS ORDERED: PROPOFOL INJ 200 MG/20 ML VIAL IV ONE (14:15)
[2018-02-28] MEDS ORDERED: FENTANYL CITRATE INJ/PF 100 MCG/2 ML AMPUL IV PRN (14:21)
[2018-02-28] MEDS ORDERED: LORAZEPAM INJ 2 MG/1 ML VIAL ONE (14:31)
[2018-02-28] MEDS: PROPOFOL 1,000 MG/100 ML INFUS..BTL IV PRN ×2 (14:40→18:46)
[2018-02-28] MEDS ORDERED: MIDAZOLAM HCL 50 MG/100 ML RTUINJ IV PRN (14:53)
[2018-02-28] MEDS ORDERED: DEXTROSE 5%-WATER 250 ML with NOREPINEPHRINE BITARTRATE 4 MG IV PRN ×2 (14:53)
[2018-02-28] MEDS ORDERED: MIDAZOLAM HCL 50 MG/100 ML RTUINJ ONE (14:54)
[2018-02-28] MEDS ORDERED: NOREPINEPHRINE BITARTRATE INJ/PF 4 MG/4 ML SDV IV ONE ×2 (14:54→18:09)
--- NOTE | 2018-02-28 14:56 | RADIOLOGY REPORT (SQ) ---
EXAM DESCRIPTION: CHEST SINGLE VIEW COMPLETED DATE/TIME: 02/28/2018 2:46 pm REASON FOR STUDY: ET TUBE PLACEMENT COMPARISON: 02/28/2018 0756 hours EXAM PARAMETERS: NUMBER OF VIEWS: One view. TECHNIQUE: Single frontal radiographic view of the chest acquired. RADIATION DOSE: NA LIMITATIONS: Obese patient, AP portable technique FINDINGS: Interval placement of a nasogastric tube with the tip 5 cm above the qamar. LUNGS AND PLEURA: No acute infiltrates. No pleural effusion or pneumothorax. MEDIASTINUM AND HILAR STRUCTURES: No masses. Contour normal. HEART AND VASCULAR STRUCTURES: Heart normal in size. Normal vasculature. BONES: No acute findings. HARDWARE: None in the chest. OTHER: No other significant finding. IMPRESSION: Endotracheal tube tip 5 cm above the qamar. No acute infiltrates. No gross pleural effusion. TECHNICAL DOCUMENTATION: JOB ID: [id number] [employer]- All Rights Reserved Reading location - IP/workstation name: [email or web address]
[2018-02-28] MEDS ORDERED: PIPERACILLIN SODIUM/TAZOBACTAM 3.375 GM in NORMAL SALINE 100 ML IV SCH (15:00)
[2018-02-28] MEDS ORDERED: SODIUM BICARBONATE 8.4% INJ 50 MEQ/50 ML DISP.SYRIN IV PRN (15:16)
[2018-02-28] MEDS ORDERED: RINGERS SOLUTION,LACTATED 1,000 ML IV PRN (16:31)
[2018-02-28] MEDS ORDERED: LORAZEPAM INJ 2 MG/1 ML VIAL IV PRN (16:37)
--- NOTE | 2018-02-28 17:08 | Operative Report ---
Operative Report DATE OF SURGERY: 02/28/18 PREOPERATIVE DIAGNOSIS: Sepsis, pancreatitis. POSTOPERATIVE DIAGNOSIS: Same, critical need for central venous access OPERATION: Right subclavian central venous catheter placement SURGEON: COLT MEDRANO ANESTHESIA: Local TISSUE REMOVED OR ALTERED: None COMPLICATIONS: None ESTIMATED BLOOD LOSS: Minimal INTRAOPERATIVE FINDINGS: None PROCEDURE: Informed consent was obtained from the patient's family. Procedure was done at the bedside in the intensive care unit. Patient's right chest and neck were prepped and draped in usual sterile fashion. Local anesthetic was administered. Patient's body habitus made the procedure difficult. The angle of approach with the needle had to be more acute than usual. The right subclavian vein was entered and guidewire was placed into the central circulation. Dilator was placed through the guidewire with minimal resistance. However the triple-lumen central venous catheter could not be fed through the guidewire despite multiple technical measures. I felt that the stiffness of the catheter was not sufficient to allow entrance underneath the clavicle at the approach that had been taken to enter the subclavian vein. A 6 Welsh Cordis was able to be placed via the Seldinger technique without difficulty. It withdrew blood and flushed easily. It was sutured in place. Stat portable chest x-ray was ordered. Patient tolerated procedure well with no apparent complications. Of note it was difficult to see the Cordis on the portable chest x-ray. Therefore a guidewire was placed through the Cordis and an x-ray was performed which clearly indicated that the Cordis was in the right subclavian vein.
--- NOTE | 2018-02-28 17:18 | RADIOLOGY REPORT (SQ) ---
EXAM DESCRIPTION: CHEST SINGLE VIEW COMPLETED DATE/TIME: 02/28/2018 4:43 pm REASON FOR STUDY: s/p central line COMPARISON: CHEST FILMS 02/28/2018 1421 HOURS EXAM PARAMETERS: NUMBER OF VIEWS: One view. TECHNIQUE: Single frontal radiographic view of the chest acquired. RADIATION DOSE: NA LIMITATIONS: Large patient FINDINGS: These films were reviewed with Dr Toledo. Because of the patient's body habitus, a traditio nal triple-lumen catheter could not be used. A Cordis sheath was placed which is non radiopaque. Th e tip of the sheath appears to be in the right subclavian vein superimposed on the posterior 3rd rib. This should not be power injected for CT. Endotracheal tube tip 5 cm above the qamar. Nasogastric tube tip and side port below the hemidiaphr agms. LUNGS AND PLEURA: Mild pulmonary vascular prominence without pulmonary edema or pneumonia. No gross pleural effusion or pneumothorax. MEDIASTINUM AND HILAR STRUCTURES: No masses. Contour normal. HEART AND VASCULAR STRUCTURES: Heart normal in size. Normal vasculature. BONES: No acute findings. HARDWARE: As above OTHER: No other significant finding. IMPRESSION: Right-sided subclavian sheath is present, no pneumothorax. This right subclavian vascul ar access should not be used for power injection for CT. Endotracheal and nasogastric tubes in good positioning. Mild pulmonary vascular prominence. TECHNICAL DOCUMENTATION: JOB ID: [id number] [employer]- All Rights Reserved Reading location - IP/workstation name: [email or web address]
--- NOTE | 2018-02-28 17:18 | RADIOLOGY REPORT (SQ) ---
EXAM DESCRIPTION: CHEST SINGLE VIEW COMPLETED DATE/TIME: 02/28/2018 4:58 pm REASON FOR STUDY: R side for central line followup COMPARISON: AP chest 02/28/2018 1620 hours EXAM PARAMETERS: NUMBER OF VIEWS: One view. TECHNIQUE: Single frontal radiographic view of the chest acquired. RADIATION DOSE: NA LIMITATIONS: Intra procedural portable film, left lateral costophrenic angle cropped from the field of view FINDINGS: Film taken during right subclavian Cordis sheath placement. A guidewire is present throug h the sheath with the tip in the right atrium. LUNGS AND PLEURA: No opacities, masses or pneumothorax. No pleural effusion. MEDIASTINUM AND HILAR STRUCTURES: No masses. Contour normal. HEART AND VASCULAR STRUCTURES: Heart normal in size. Normal vasculature. BONES: No acute findings. HARDWARE: Endotracheal tube tip 5 cm above the qamar. Nasogastric tube tip and side port below the hemidiaphragms. OTHER: No other significant finding. IMPRESSION: Intra procedural portable film demonstrating a wire passing through the non radiopaque c ord is sheath in the right subclavian vein TECHNICAL DOCUMENTATION: JOB ID: [id number] [employer]- All Rights Reserved Reading location - IP/workstation name: [email or web address]
--- NOTE | 2018-02-28 17:21 | TRANSFER SUMMARY E ---
Transfer Summary NAME: TRELL HUTCHINSON : 1995 AGE: 22Y ADMITTED: 02/27/2018 TRANSFERRED: 02/28/2018 TRANSFER DIAGNOSES: 1. Gallstone pancreatitis. 2. Sepsis. 3. Cholangitis. 4. Acute renal failure. HOSPITAL COURSE: The patient was admitted and placed on antibiotics and IV fluids. He was noted with worsening of his condition with tachycardia and mental status changes, along with profound leukocytosis and tachypnea. Patient had minimal abdominal pain with a soft mildly tender abdomen with no peritoneal signs. laboratory evaluation demonstrated acute renal failure with a creatinine of 3, from admission creatinine of 0.8. His total bilirubin increased from 1.3 at admission to 10.1 with his transaminases being elevated also at 271 and 336. His alkaline phosphatase was 82. His lipase at presentation was 39,000 and on the morning of transfer it was 11,000. He underwent an abdominal pelvic CT scan without contrast. It demonstrated diffuse enlargement of the pancreas with inflammatory changes, most profound in the retroperitoneum. No significant bowel abnormalities were seen. Small gallstones were suggested by the CT. The patient's antibiotic coverage was broadened and he received multiple fluid boluses. Consultations were made with the hospitalist, as well as nephrology. Of note, his VQ scan was low probability. His chest x-ray demonstrated no infiltrates. His ABG demonstrated a pH of 7.4 with pCO2 of 20, pO2 of 70 on 2 liters of FiO2 and bicarb of 12.3. Hospitalist felt that the patient would benefit from intubation prior to respiratory failure. The patient was intubated without difficulty. The patient was then noted with hypotension despite fluid boluses and norepinephrine was begun. [facility] was contacted during the morning of his transfer and although the mid level clinician did not feel that he met ICU criteria that morning, the hospitalist at [facility] agreed to accept the patient in transfer. With the patient's clinical deterioration, the ICU at [facility] finally agreed to accept him in transfer to the ICU. TRANSFER INSTRUCTION: The patient is now being transferred in critical condition. The patient is intubated. His IV fluids are normal saline at 200 mL an hour. He has a Dutton catheter. The patient's vent setting is SIMV with a rate of 22, FiO2 of 50%, tidal volume of 650, PEEP of 5, and pressure support of [address] Loera, who is our meter reader. The patient's transfer medications are; 1. Propofol titrate to effect. 2. Zosyn 3.375 grams IV q.6 hours. 3. levophed and neosynephrine, titrate to keep systolic blood pressure greater than 90. 4. Morphine 4 mg IV q.3 hours p.r.n. 5. Versed 8 micrograms per minute DICTATING PHYSICIAN: LONNIE MEDRANO M.D. [id number] PHY#: [id number] ID: [id number] JOB#: [id number] ACCT: [id number] cc:LONNIE MEDRANO M.D. > MTDD
[2018-02-28 17:24] VITALS: BP 80/44
[2018-02-28 17:36] LABS: ARTERIAL BLOOD BASE EXCESS -10.9 mmol/L; ARTERIAL BLOOD FIO2 60%; ARTERIAL BLOOD H2CO3 0.72 mmol/L (1.05-1.35); ARTERIAL BLOOD HCO3 12.5 mmol/L (20-24); ARTERIAL BLOOD O2 SATURATION 98.7 % (94-98); ARTERIAL BLOOD PH 7.34 (7.35-7.45); ARTERIAL BLOOD PO2 138.2 mmHg (80-100); ARTERIAL BLOOD TOTAL CO2 13.2 mmol/L (23-27)
[2018-02-28] MEDS ORDERED: PHENYLEPHRINE HCL INJ/PF 10 MG/1 ML SDV ONE ×2 (17:37→18:09)
--- NOTE | 2018-02-28 17:45 | PDOC CONSULTATION ---
Consultation Consult Date: 02/28/18 Attending physician:: SO CLAUDIO Consult reason:: Multiorgan failure History of Present Illness Admission Date/PCP: 02/27/18 00:11 History of Present Illness: TRELL HUTCHINSON is a 22 year old male who presented with Abdominal pain was admitted for acute pancreatitis/cholecystitis was kept n.p.o. given IV fluids over the last 12 hours he is taking turn for the worse and is noted to have creatinine elevation as well persistent elevation of his liver function test is profoundly acidotic and tachypneic resulted in his being intubated sedated Past Medical History GI Medical History: Reports: Gastroesophageal Reflux Disease Past Surgical History Past Surgical History: Reports: None Social History Information Source: COUNT INCLUDES THE [facility] Records Lives with: Family Smoking Status: Never Smoker Hx Recreational Drug Use: No Drugs: None Hx Prescription Drug Abuse: No Family History Parental Family History Reviewed: No Children Family History Reviewed: No Sibling(s) Family History Reviewed.: No Medication/Allergy Home Medications: No Home Medications 02/27/18 Allergies/Adverse Reactions: No Known Allergies Allergy (Verified 06/05/14 12:20) Review of Systems ROS unobtainable: Due to endotracheal tube Physical Exam Vital Signs: Temp Pulse Resp BP Pulse Ox 99.7 F 168 H 34 H 110/61 100 02/28/18 08:00 02/28/18 14:00 02/28/18 14:00 02/28/18 14:00 02/28/18 14:00 Intake & Output 02/27/18 02/28/18 03/01/18 06:59 06:59 06:59 Intake Total 2100 4146 Output Total 2020 5 Balance 2100 2126 -5 Weight 164.9 kg General appearance: PRESENT: no acute distress, disheveled, morbidly obese. ABSENT: cooperative Head exam: PRESENT: atraumatic, normocephalic Eye exam: PRESENT: conjunctiva pale. ABSENT: EOMI, nystagmus, periorbital swelling, scleral icterus Mouth exam: PRESENT: dry mucosa, neck supple, tongue midline, other - ET tube in place Neck exam: ABSENT: carotid bruit, JVD, lymphadenopathy, thyromegaly, tracheal deviation, tracheostomy Respiratory exam: PRESENT: decreased breath sounds, rales, rhonchi, tachypnea. ABSENT: retraction, stridor Cardiovascular exam: PRESENT: RRR, +S1, +S2, tachycardia Pulses: PRESENT: normal radial pulses GI/Abdominal exam: PRESENT: diminished bowel sounds, firm Extremities exam: ABSENT: calf tenderness, clubbing, joint swelling, pedal edema Musculoskeletal exam: ABSENT: deformity, dislocation Neurological exam: ABSENT: awake Skin exam: PRESENT: dry Results Laboratory Results: 02/28/18 04:28 02/28/18 11:10 02/28/18 02/28/18 02/28/18 04:28 04:28 04:28 WBC 31.3 H* RBC 6.71 H Hgb 19.1 H Hct 54.1 H MCV 81 MCH 28.5 MCHC 35.3 RDW 14.6 H Plt Count 358 Seg Neutrophils % Not Reportable Lymphocytes % Not Reportable Monocytes % Not Reportable Eosinophils % Not Reportable Basophils % Not Reportable Absolute Neutrophils Not Reportable Absolute Lymphocytes Not Reportable Absolute Monocytes Not Reportable Absolute Eosinophils Not Reportable Absolute Basophils Not Reportable Carbonic Acid HCO3/H2CO3 Ratio ABG pH ABG pCO2 ABG pO2 ABG HCO3 ABG O2 Saturation ABG Base Excess FiO2 Sodium 143.3 Potassium 5.0 Chloride 110 H Carbon Dioxide 16 L Anion Gap 17 BUN 25 H Creatinine 3.02 H Est GFR ( Amer) 32 L Est GFR (Non-Af Amer) 27 L Glucose 168 H Lactic Acid Calcium 7.5 L Total Bilirubin 10.1 H AST 271 H ALT 336 H Alkaline Phosphatase 82 Total Protein 6.7 Albumin 3.6 Lipase 43433.1 H 02/28/18 02/28/18 02/28/18 11:00 11:10 11:10 WBC RBC Hgb Hct MCV MCH MCHC RDW Plt Count Seg Neutrophils % Lymphocytes % Monocytes % Eosinophils % Basophils % Absolute Neutrophils Absolute Lymphocytes Absolute Monocytes Absolute Eosinophils Absolute Basophils Carbonic Acid HCO3/H2CO3 Ratio ABG pH ABG pCO2 ABG pO2 ABG HCO3 ABG O2 Saturation ABG Base Excess FiO2 Sodium Cancelled Potassium Cancelled Chloride Cancelled Carbon Dioxide Cancelled Anion Gap Cancelled BUN Cancelled Creatinine Cancelled Est GFR ( Amer) Cancelled Est GFR (Non-Af Amer) Cancelled Glucose Cancelled Lactic Acid 7.4 H Cancelled Calcium Cancelled Total Bilirubin Cancelled AST Cancelled ALT Cancelled Alkaline Phosphatase Cancelled Total Protein Cancelled Albumin Cancelled Lipase 02/28/18 13:20 WBC RBC Hgb Hct MCV MCH MCHC RDW Plt Count Seg Neutrophils % Lymphocytes % Monocytes % Eosinophils % Basophils % Absolute Neutrophils Absolute Lymphocytes Absolute Monocytes Absolute Eosinophils Absolute Basophils Carbonic Acid 0.61 L HCO3/H2CO3 Ratio 20:1 ABG pH 7.40 ABG pCO2 20.1 L* ABG pO2 70.2 L ABG HCO3 12.3 L ABG O2 Saturation 94.6 ABG Base Excess -9.1 FiO2 2L Sodium Potassium Chloride Carbon Dioxide Anion Gap BUN Creatinine Est GFR ( Amer) Est GFR (Non-Af Amer) Glucose Lactic Acid Calcium Total Bilirubin AST ALT Alkaline Phosphatase Total Protein Albumin Lipase Impressions: Abdomen Ultrasound 02/26/18 21:58 IMPRESSION: Limited study due to motion artifact and body habitus. Suggestion of gallstones. No evidence of cholecystitis. Abdomen/Pelvis CT 02/28/18 00:00 IMPRESSION: 1. The constellation of findings as noted above including diffuse enlargement of the pancreas and kezq-rb-[id number] inflammatory or edematous changes in the abdomen and pelvic cavities, suggest acute pancreatitis. 2. Very small gallstones are suggested. 3. Small bilateral pleural effusions, larger on the left. Lung Scan-VQ NM 02/28/18 00:00 IMPRESSION: LIMITED STUDY. NO PERFUSION DEFECTS. LOW PROBABILITY OF PULMONARY EMBOLISM. Chest X-Ray 02/28/18 07:43 IMPRESSION: NO ACUTE RADIOGRAPHIC FINDING IN THE CHEST. Assessment & Plan - Diagnosis (1) Acute gallstone pancreatitis Is this a current diagnosis for this admission?: Yes (2) Acute renal failure Is this a current diagnosis for this admission?: Yes Plan: Labs- All tests 24 hr 02/26/18 02/28/18 22:05 04:28 BUN 25 H Creatinine 0.80 3.02 H (3) Morbid obesity with BMI of 45.0-49.9, adult Is this a current diagnosis for this admission?: Yes (4) Septic shock Is this a current diagnosis for this admission?: Yes Plan: levo + jeri - Time Total Critical Time (Minutes): 80
--- NOTE | 2018-02-28 17:54 | Operative Report ---
Operative Report DATE OF SURGERY: 02/28/18 Operative Report: 22 yo obese male in septic shock lactic acidosis 2 vasopressors micropuncture of r femoral artery under ultrasound guidance ;pulsatle return , good wave form abg confirm art gas. suture cath as well as as the a-line port for security before transport PREOPERATIVE DIAGNOSIS: Sepsis, pancreatitis. POSTOPERATIVE DIAGNOSIS: critical need for accurate arterial pressures and repeated abg's OPERATION: Right femoral a-line placement SURGEON: DARION BARTLETT ANESTHESIA: Local TISSUE REMOVED OR ALTERED: None ESTIMATED BLOOD LOSS: Minimal INTRAOPERATIVE FINDINGS: None
[2018-02-28 18:17] LABS: ALANINE AMINOTRANSFERASE 187 U/L (21-72); ALBUMIN 2.2 g/dL (3.5-5.0); ALKALINE PHOSPHATASE 44 U/L (38-126); ANION GAP 11 (5-19); ASPARTATE AMINO TRANSFERASE 194 U/L (17-59); BILIRUBIN,DIRECT 3.7 mg/dL (0.0-0.4); BLOOD UREA NITROGEN 39 mg/dL (7-20); CARBON DIOXIDE 18 mmol/L (22-30); CHLORIDE 109 mmol/L (98-107); GLUCOSE 277 mg/dL (75-110); SODIUM 137.6 mmol/L (137-145); TOTAL PROTEIN 4.5 g/dL (6.3-8.2)
[2018-02-28 18:25] LABS: BILIRUBIN,TOTAL 4.5 mg/dL (0.2-1.3)
[2018-02-28 18:30] LABS: POTASSIUM 6.4 mmol/L (3.6-5.0)
[2018-02-28] MEDS ORDERED: DEXTROSE 50%-WATER 25 GM/50 ML DISP.SYRIN IV ONE (18:30)
[2018-02-28] MEDS ORDERED: CALCIUM GLUCONATE 1000 MG/10 ML INJ IV ONE (18:30)
[2018-02-28] MEDS ORDERED: INSULIN REG, HUMAN 100 UNIT/ML 3 ML VIAL (PYX) IV ONE (18:30)
[2018-02-28 18:31] LABS: CALCIUM 4.7 mg/dL (8.4-10.2)
[2018-02-28] MEDS ORDERED: PIPERACILLIN SODIUM/TAZOBACTAM 2.25 GM in NORMAL SALINE 100 ML IV SCH (18:34)
--- NOTE | 2018-02-28 18:39 | PDOC CONSULTATION ---
Consultation Consult Date: 02/28/18 Consult reason:: Sepsis/TOM History of Present Illness Admission Date/PCP: 02/27/18 00:11 History of Present Illness: Patient was seen earlier this morning just prior to ICU transfer. TRELL HUTCHINSON is a 22 year old male with morbid obesity and no known other PMH , on no medications at home. Came to the ER with RUQ pain and was found to have elevated lipase and gallstones. He was subsequently admitted for gallstone pancreatitis. At the time creatinine was at baseline. He was found to have an elevated white count. Patient was kept NPO and was also started on IV fluids, ampicillin and pain management medications. This morning he was found to be tachycardic in the 150s and above. His white count had also elevated more, creatinine had elevated to 3 and urine output had decreased olguric levels. He was switched to ertapenem and a charles catheter was placed. At the time of examination the patient appeared anxious and altered. His blood pressure was maintaining in the 120s to 130s systolic, despite a heart rate in the 170s. He was not able to fully answer a review of systems for me. He did deny chest pain, SOB, nausea, or abdominal pain at the time of examination. Also at this time Dr. Toledo was looking for a transfer to the ICU and ultimately to [facility]. Past Medical History GI Medical History: Reports: Gastroesophageal Reflux Disease Past Surgical History Past Surgical History: Reports: None Social History Lives with: Family Smoking Status: Never Smoker Hx Recreational Drug Use: No Drugs: None Hx Prescription Drug Abuse: No Family History Parental Family History Reviewed: No Children Family History Reviewed: NA Sibling(s) Family History Reviewed.: NA Medication/Allergy Home Medications: No Home Medications 02/27/18 Allergies/Adverse Reactions: No Known Allergies Allergy (Verified 06/05/14 12:20) Review of Systems Constitutional: PRESENT: fever(s), weakness Cardiovascular: PRESENT: palpitations. ABSENT: chest pain, dyspnea on exertion , orthropnea Gastrointestinal: ABSENT: abdominal pain, nausea Genitourinary: PRESENT: difficulty urinating Neurological: PRESENT: confusion Psychiatric: PRESENT: anxiety Physical Exam Vital Signs: Temp Pulse Resp BP Pulse Ox 99.7 F 168 H 0 L 80/44 L 99 02/28/18 08:00 02/28/18 14:00 02/28/18 17:10 02/28/18 17:10 02/28/18 17:10 Intake & Output 02/27/18 02/28/18 03/01/18 06:59 06:59 06:59 Intake Total 2099 4145 Output Total 2019 09 Balance 2099 2125 - Weight 164.9 kg General appearance: PRESENT: mild distress, morbidly obese Mouth exam: PRESENT: dry mucosa, neck supple Neck exam: ABSENT: JVD, tracheal deviation Respiratory exam: PRESENT: clear to auscultation lashawn. ABSENT: accessory muscle use, crackles, rales, rhonchi, wheezes Cardiovascular exam: PRESENT: +S1, +S2, tachycardia GI/Abdominal exam: PRESENT: rigid. ABSENT: guarding, rebound, tenderness Extremities exam: ABSENT: pedal edema, +1 edema, +2 edema Musculoskeletal exam: PRESENT: normal inspection. ABSENT: tenderness Neurological exam: PRESENT: altered, awake, oriented to person, oriented to place Psychiatric exam: PRESENT: anxious, unusual affect Skin exam: PRESENT: dry, erythema, intact. ABSENT: cyanosis Results Laboratory Results: 02/28/18 04:28 02/28/18 15:12 02/28/18 02/28/18 02/28/18 04:28 04:28 04:28 WBC 31.3 H* RBC 6.71 H Hgb 19.1 H Hct 54.1 H MCV 81 MCH 28.5 MCHC 35.3 RDW 14.6 H Plt Count 358 Seg Neutrophils % Not Reportable Lymphocytes % Not Reportable Monocytes % Not Reportable Eosinophils % Not Reportable Basophils % Not Reportable Absolute Neutrophils Not Reportable Absolute Lymphocytes Not Reportable Absolute Monocytes Not Reportable Absolute Eosinophils Not Reportable Absolute Basophils Not Reportable Carbonic Acid HCO3/H2CO3 Ratio ABG pH ABG pCO2 ABG pO2 ABG HCO3 ABG O2 Saturation ABG Base Excess FiO2 Sodium 143.3 Potassium 5.0 Chloride 110 H Carbon Dioxide 16 L Anion Gap 17 BUN 25 H Creatinine 3.02 H Est GFR ( Amer) 32 L Est GFR (Non-Af Amer) 27 L Glucose 168 H Lactic Acid Calcium 7.5 L Total Bilirubin 10.1 H AST 271 H ALT 336 H Alkaline Phosphatase 82 Total Protein 6.7 Albumin 3.6 Lipase 25191.1 H 02/28/18 02/28/18 02/28/18 11:00 11:10 11:10 WBC RBC Hgb Hct MCV MCH MCHC RDW Plt Count Seg Neutrophils % Lymphocytes % Monocytes % Eosinophils % Basophils % Absolute Neutrophils Absolute Lymphocytes Absolute Monocytes Absolute Eosinophils Absolute Basophils Carbonic Acid HCO3/H2CO3 Ratio ABG pH ABG pCO2 ABG pO2 ABG HCO3 ABG O2 Saturation ABG Base Excess FiO2 Sodium Cancelled Potassium Cancelled Chloride Cancelled Carbon Dioxide Cancelled Anion Gap Cancelled BUN Cancelled Creatinine Cancelled Est GFR ( Amer) Cancelled Est GFR (Non-Af Amer) Cancelled Glucose Cancelled Lactic Acid 7.4 H Cancelled Calcium Cancelled Total Bilirubin Cancelled AST Cancelled ALT Cancelled Alkaline Phosphatase Cancelled Total Protein Cancelled Albumin Cancelled Lipase 02/28/18 02/28/18 02/28/18 13:20 15:12 15:12 WBC RBC Hgb Hct MCV MCH MCHC RDW Plt Count Seg Neutrophils % Lymphocytes % Monocytes % Eosinophils % Basophils % Absolute Neutrophils Absolute Lymphocytes Absolute Monocytes Absolute Eosinophils Absolute Basophils Carbonic Acid 0.61 L HCO3/H2CO3 Ratio 20:1 ABG pH 7.40 ABG pCO2 20.1 L* ABG pO2 70.2 L ABG HCO3 12.3 L ABG O2 Saturation 94.6 ABG Base Excess -9.1 FiO2 2L Sodium Cancelled Potassium Cancelled Chloride Cancelled Carbon Dioxide Cancelled Anion Gap Cancelled BUN Cancelled Creatinine Cancelled Est GFR ( Amer) Cancelled Est GFR (Non-Af Amer) Cancelled Glucose Cancelled Lactic Acid 7.9 H Calcium Cancelled Total Bilirubin Cancelled AST Cancelled ALT Cancelled Alkaline Phosphatase Cancelled Total Protein Cancelled Albumin Cancelled Lipase 02/28/18 17:15 WBC RBC Hgb Hct MCV MCH MCHC RDW Plt Count Seg Neutrophils % Lymphocytes % Monocytes % Eosinophils % Basophils % Absolute Neutrophils Absolute Lymphocytes Absolute Monocytes Absolute Eosinophils Absolute Basophils Carbonic Acid 0.72 L HCO3/H2CO3 Ratio 17:1 ABG pH 7.34 L ABG pCO2 24.0 L ABG pO2 138.2 H ABG HCO3 12.5 L ABG O2 Saturation 98.7 H ABG Base Excess -10.9 FiO2 60% Sodium Potassium Chloride Carbon Dioxide Anion Gap BUN Creatinine Est GFR ( Amer) Est GFR (Non-Af Amer) Glucose Lactic Acid Calcium Total Bilirubin AST ALT Alkaline Phosphatase Total Protein Albumin Lipase Impressions: Abdomen Ultrasound 02/26/18 21:58 IMPRESSION: Limited study due to motion artifact and body habitus. Suggestion of gallstones. No evidence of cholecystitis. Abdomen/Pelvis CT 02/28/18 00:00 IMPRESSION: 1. The constellation of findings as noted above including diffuse enlargement of the pancreas and [id number]-[id number] inflammatory or edematous changes in the abdomen and pelvic cavities, suggest acute pancreatitis. 2. Very small gallstones are suggested. 3. Small bilateral pleural effusions, larger on the left. Lung Scan-VQ NM 02/28/18 00:00 IMPRESSION: LIMITED STUDY. NO PERFUSION DEFECTS. LOW PROBABILITY OF PULMONARY EMBOLISM. Chest X-Ray 02/28/18 07:43 IMPRESSION: NO ACUTE RADIOGRAPHIC FINDING IN THE CHEST. Assessment & Plan - Diagnosis (1) Acute renal failure Is this a current diagnosis for this admission?: Yes Plan: Oliguric, combination of dehydration and ATN from the current infection. Stopping ringers and starting him on normal saline at 150mL an hour. Do not recommend ringers with his current state of decreased kidney function. Severe elevation in potassium can happen from giving ringers. All medications should be dosed to a GFR of less than 25. Currently no indication for [employer], will look to monitor. Recommend transferring to a facility with CRRT capabilities due to the fact that bp will most likely decompensate to a point where regular hemodialysis will not be able to be done. (2) Acute gallstone pancreatitis Is this a current diagnosis for this admission?: Yes Plan: per surgery and hospitalist (3) Cholangitis concurrent with and due to calculus of gallbladder Is this a current diagnosis for this admission?: Yes Plan: Zoysn was decreased to 2.25g q6 for renal adjustments to the patients current kidney function. (4) Septic shock Is this a current diagnosis for this admission?: Yes Plan: Zoysn was decreased to 2.25g q6 for renal adjustments to the patients current kidney function. start normal saline at 150mg an hour. (5) Tachycardia Is this a current diagnosis for this admission?: Yes Plan: per hospitalist (6) Metabolic acidosis Plan: currently on a bicarb drip (7) Morbid obesity with BMI of 45.0-49.9, adult Is this a current diagnosis for this admission?: Yes
[2018-02-28] MEDS ORDERED: MAGNESIUM SULFATE/D5W 1 GM/100 ML RTUPB IV ONE (18:45)
--- NOTE | 2018-02-28 19:04 | PDOC CONSULTATION ---
History of Present Illness Admission Date/PCP: 02/27/18 00:11 History of Present Illness: TRELL HUTCHINSON is a 22 year old malePatient who was admitted on 02/26/2018 with acute onset abdominal pain and nausea. He was diagnosed with acute pancreatitis with a lipase of 39,000 and gallstones noted on his ultrasound. On admission his total bilirubin was 1.3 with an AST of 101 and ALT of 102. By this morning his bilirubin has gone up to 10 with AST of 271 and ALT of 336. His lipase initially came down to 5300 but went back up to 11,000 today. Consultation was requested for ERCP. Patient has been tachycardic for many hours with his heart rate ranging from 140-170 and he has also become slightly tachypneic. His white count was 31 with a left shift. He also has gone into renal failure with a creatinine of 3 I spoke with his surgeon on the hospitalist early on today about the need for an urgent ERCP if he is stable enough. His clinical condition worsened this afternoon and he is now intubated awaiting transfer to [place]. Past Medical History GI Medical History: Reports: Gastroesophageal Reflux Disease Past Surgical History Past Surgical History: Reports: None Social History Lives with: Family Smoking Status: Never Smoker Hx Recreational Drug Use: No Drugs: None Hx Prescription Drug Abuse: No Family History Family History: Reviewed & Not Pertinent Parental Family History Reviewed: No Children Family History Reviewed: NA Sibling(s) Family History Reviewed.: NA Medication/Allergy Home Medications: No Home Medications 02/27/18 Allergies/Adverse Reactions: No Known Allergies Allergy (Verified 06/05/14 12:20) Review of Systems ROS unobtainable: Due to endotracheal tube, Due to mental status Physical Exam Vital Signs: Temp Pulse Resp BP Pulse Ox 99.7 F 168 H 0 L 80/44 L 99 02/28/18 08:00 02/28/18 14:00 02/28/18 17:10 02/28/18 17:10 02/28/18 17:10 Intake & Output 02/27/18 02/28/18 03/01/18 06:59 06:59 06:59 Intake Total 2100 4146 99 Output Total 2019 5 Balance 2099 2126 94 Weight 164.9 kg Exam: General: Intubated and unresponsive. He is very obese HEENT: There is no pallor or jaundice. PERRLA. Oropharynx normal Respiratory: No chest deformity. No respiratory distress. Chest wall palpitation was unremarkable. Breath sounds were normal Cardiovascular: Heart sounds 1 and 2 normal with no murmurs. Abdominal: Not distended. Soft and nontender. Liver and spleen not palpable. No ascites demonstrated. Bowel sounds active. Rectal examination was deferred. Extremities: No edema Results Laboratory Results: 02/28/18 04:28 02/28/18 18:00 02/28/18 02/28/18 02/28/18 04:28 04:28 04:28 WBC 31.3 H* RBC 6.71 H Hgb 19.1 H Hct 54.1 H MCV 81 MCH 28.5 MCHC 35.3 RDW 14.6 H Plt Count 358 Seg Neutrophils % Not Reportable Lymphocytes % Not Reportable Monocytes % Not Reportable Eosinophils % Not Reportable Basophils % Not Reportable Absolute Neutrophils Not Reportable Absolute Lymphocytes Not Reportable Absolute Monocytes Not Reportable Absolute Eosinophils Not Reportable Absolute Basophils Not Reportable Carbonic Acid HCO3/H2CO3 Ratio ABG pH ABG pCO2 ABG pO2 ABG HCO3 ABG O2 Saturation ABG Base Excess FiO2 Sodium 143.3 Potassium 5.0 Chloride 110 H Carbon Dioxide 16 L Anion Gap 17 BUN 25 H Creatinine 3.02 H Est GFR ( Amer) 32 L Est GFR (Non-Af Amer) 27 L Glucose 168 H Lactic Acid Calcium 7.5 L Magnesium Total Bilirubin 10.1 H AST 271 H ALT 336 H Alkaline Phosphatase 82 Total Protein 6.7 Albumin 3.6 Lipase 70253.1 H 02/28/18 02/28/18 02/28/18 11:00 11:10 11:10 WBC RBC Hgb Hct MCV MCH MCHC RDW Plt Count Seg Neutrophils % Lymphocytes % Monocytes % Eosinophils % Basophils % Absolute Neutrophils Absolute Lymphocytes Absolute Monocytes Absolute Eosinophils Absolute Basophils Carbonic Acid HCO3/H2CO3 Ratio ABG pH ABG pCO2 ABG pO2 ABG HCO3 ABG O2 Saturation ABG Base Excess FiO2 Sodium Cancelled Potassium Cancelled Chloride Cancelled Carbon Dioxide Cancelled Anion Gap Cancelled BUN Cancelled Creatinine Cancelled Est GFR ( Amer) Cancelled Est GFR (Non-Af Amer) Cancelled Glucose Cancelled Lactic Acid 7.4 H Cancelled Calcium Cancelled Magnesium Total Bilirubin Cancelled AST Cancelled ALT Cancelled Alkaline Phosphatase Cancelled Total Protein Cancelled Albumin Cancelled Lipase 02/28/18 02/28/1802/28/18 13:20 15:12 15:12 WBC RBC Hgb Hct MCV MCH MCHC RDW Plt Count Seg Neutrophils % Lymphocytes % Monocytes % Eosinophils % Basophils % Absolute Neutrophils Absolute Lymphocytes Absolute Monocytes Absolute Eosinophils Absolute Basophils Carbonic Acid 0.61 L HCO3/H2CO3 Ratio 20:1 ABG pH 7.40 ABG pCO2 20.1 L* ABG pO2 70.2 L ABG HCO3 12.3 L ABG O2 Saturation 94.6 ABG Base Excess -9.1 FiO2 2L Sodium Cancelled Potassium Cancelled Chloride Cancelled Carbon Dioxide Cancelled Anion Gap Cancelled BUN Cancelled Creatinine Cancelled Est GFR ( Amer) Cancelled Est GFR (Non-Af Amer) Cancelled Glucose Cancelled Lactic Acid 7.9 H Calcium Cancelled Magnesium Total Bilirubin Cancelled AST Cancelled ALT Cancelled Alkaline Phosphatase Cancelled Total Protein Cancelled Albumin Cancelled Lipase 02/28/18 02/28/18 17:15 18:00 WBC RBC Hgb Hct MCV MCH MCHC RDW Plt Count Seg Neutrophils % Lymphocytes % Monocytes % Eosinophils % Basophils % Absolute Neutrophils Absolute Lymphocytes Absolute Monocytes Absolute Eosinophils Absolute Basophils Carbonic Acid 0.72 L HCO3/H2CO3 Ratio 17:1 ABG pH 7.34 L ABG pCO2 24.0 L ABG pO2 138.2 H ABG HCO3 12.5 L ABG O2 Saturation 98.7 H ABG Base Excess -10.9 FiO2 60% Sodium 137.6 Potassium 6.4 H* D Chloride 109 H Carbon Dioxide 18 L Anion Gap 11 BUN 39 H Creatinine 5.52 H Est GFR ( Amer) 16 L Est GFR (Non-Af Amer) 13 L Glucose 277 H Lactic Acid Calcium 4.7 L* Magnesium 1.2 L* Total Bilirubin 4.5 H D AST 194 H ALT 187 H Alkaline Phosphatase 44 Total Protein 4.5 L Albumin 2.2 L Lipase Impressions: Abdomen Ultrasound 02/26/18 21:58 IMPRESSION: Limited study due to motion artifact and body habitus. Suggestion of gallstones. No evidence of cholecystitis. Abdomen/Pelvis CT 02/28/18 00:00 IMPRESSION: 1. The constellation of findings as noted above including diffuse enlargement of the pancreas and [id number]-vl-[id number] inflammatory or edematous changes in the abdomen and pelvic cavities, suggest acute pancreatitis. 2. Very small gallstones are suggested. 3. Small bilateral pleural effusions, larger on the left. Lung Scan-VQ NM 02/28/18 00:00 IMPRESSION: LIMITED STUDY. NO PERFUSION DEFECTS. LOW PROBABILITY OF PULMONARY EMBOLISM. Chest X-Ray 02/28/18 07:43 IMPRESSION: NO ACUTE RADIOGRAPHIC FINDING IN THE CHEST. Assessment & Plan - Diagnosis (1) Acute gallstone pancreatitis Is this a current diagnosis for this admission?: Yes Plan: He has severe gallstone pancreatitis and is now in multiorgan failure. He has not been making much urine and there was only 5-10 cc of urine when a Dutton catheter was inserted. He received a couple of IV boluses this morning and continues on 250 cc an hour. He does need an urgent ERCP especially with a bilirubin of 10 suggestive of biliary obstruction. his condition has deteriorated requiring intubation and his family is requesting a transfer. He is being transferred to [place]. (2) Acute renal failure Is this a current diagnosis for this admission?: Yes (3) Cholangitis concurrent with and due to calculus of gallbladder Is this a current diagnosis for this admission?: Yes (4) Morbid obesity with BMI of 45.0-49.9, adult Is this a current diagnosis for this admission?: Yes (5) Septic shock Is this a current diagnosis for this admission?: Yes
[2018-02-28] MEDS ORDERED: PIPERACILLIN SODIUM/TAZOBACTAM 2.25 GM in NORMAL SALINE 50 ML IV SCH (21:00)
== END 2018-02-28 19:00 | disposition short-term general hospital (02) | DRG 438 ==
LOC: ER 21:39 → EH 23:53 → INTOOBSV 23:53 → OBSVTOIN 02-27 00:11 → 4N 02-27 01:10 → ICU 02-28 11:30
PROVIDERS: ADMIT Surgery; ATTEND Surgery
PROC: 5A1935Z Respiratory Ventilation, Less than 24 Consecutive Hours (ICD-10-PCS; principal; 2018-02-28)
PROC: 5A09357 Assistance with Respiratory Ventilation, Less than 24 Consecutive Hours, Continuous Positive Airway Pressure (ICD-10-PCS; 2018-02-28)
PROC: 06HM33Z Insertion of Infusion Device into Right Femoral Vein, Percutaneous Approach (ICD-10-PCS; 2018-02-28)
PROC: B54BZZA Ultrasonography of Right Lower Extremity Veins, Guidance (ICD-10-PCS; 2018-02-28)
PROC: 02H633Z Insertion of Infusion Device into Right Atrium, Percutaneous Approach (ICD-10-PCS; 2018-02-28)
PROC: 0BH17EZ Insertion of Endotracheal Airway into Trachea, Via Natural or Artificial Opening (ICD-10-PCS; 2018-02-28)
DX: K85.10 Biliary acute pancreatitis without necrosis or infection (principal); A41.9 Sepsis, unspecified organism; R65.21 Severe sepsis with septic shock; K83.09 Other cholangitis; N17.9 Acute kidney failure, unspecified; Z68.42 Body mass index [BMI] 45.0-49.9, adult; K21.9 Gastro-esophageal reflux disease without esophagitis; E66.01 Morbid (severe) obesity due to excess calories; F41.9 Anxiety disorder, unspecified; Z78.1 Physical restraint status
CPT/HCPCS: 31500; 36415; 36600; 71045; 74176; 76705; 78582; 80053; 81001; 82803; 83605; 83690; 83735; 85025; 87040; 93005; 93010; 94002; 94660; 96374; 96375; 99285; A9540; A9567; C1751; C1752; J0295; J0610; J1335; J1630; J1815; J1885; J2060; J2250; J2270; J2370; J2405; J2704; J2765; J3010; J3475; J3490; J7030; J7120; Q9969